=== PATIENT | male | born 1960 | race Two or more races ===

== ENCOUNTER 2023-10-16 10:50 | Emergency (ER) | payer OTHER ==
[~2023-10-16] VITALS: Ht 182.9 cm; Wt 108.5 kg
[2023-10-16 11:49] VITALS: BP 133/83; PULSE 80; RESP 18; TEMP 97.8; O2SAT 96
[2023-10-16] MEDS ORDERED: methylPREDNISolone SOD SUCC 125 MG/2 ML VL IM ONE (12:00)
[2023-10-16] MEDS ORDERED: cefTRIAXone SOD 1,000 MG VL IM ONE (12:00)
[2023-10-16] MEDS ORDERED: AZIT500T66 PO (12:05)
== END 2023-10-16 12:32 | disposition home or self-care (01) ==
LOC: ER 10:50
DX: K12.2 Cellulitis and abscess of mouth (principal); Z79.899 Other long term (current) drug therapy
CPT/HCPCS: 96372; 99284; J0696; J2930

== ENCOUNTER → 2023-10-21 | Outpatient (CLI) | payer OTHER ==
[~2023-10-21] MED LIST: AZIT500T66 PO
[2023-10-21 09:32] LABS: Basophils # (auto) 0 10 ^3/uL (0-0.2); Basophils % (auto) 0.5 % (0.0-2.0); Eosinophils # (auto) 0.2 10 ^3/uL (0-0.8); Eosinophils % (auto) 2.9 % (0.0-7.0); Hematocrit 48.1 % (41.0-53.0); Hemoglobin 16.3 g/dL (13.5-17.5); Lymphocytes # (auto) 2.1 10 ^3/uL (0.4-5.4); Lymphocytes % (auto) 30.7 % (10.0-50.0); Mean Corpuscular Hemoglobin 32.8 pg (28.0-32.0); Mean Corpuscular Volume 96.4 fL (80.0-100.0); Monocytes # (auto) 0.5 10 ^3/uL (0-1.3); Monocytes % (auto) 7.1 % (0.0-12.0); Neutrophils # (auto) 4.1 10 ^3/uL (1.6-8.6); Neutrophils % (auto) 58.8 % (37.0-80.0); Nucleated Red Blood Cells % 0.1 %; Red Blood Cells 4.98 10^6/uL (4.5-5.90); Red Cell Distribution Width 12.8 % (11.8-14.3)
[2023-10-21 09:57] LABS: Alanine Aminotransferase 27 U/L (7-40); Albumin 4.4 g/dL (3.2-4.8); Alkaline Phosphatase 53 U/L (46-116); Anion Gap 7 (5-15); Aspartate Aminotransferase 22 U/L (13-40); BUN/Creatinine Ratio 12.3 (10.0-20.0); Blood Urea Nitrogen 13 mg/dL (9-23); Calcium 9.5 mg/dL (8.5-10.1); Carbon Dioxide 26 mmol/L (20-30); Chloride 106 mmol/L (98-107); Cholesterol 235 mg/dL (< 200); Glucose 160 mg/dL (74-106); HDL Cholesterol 42 mg/dL (40-59); LDL Cholesterol 151 mg/dL (< 100); Potassium 4.7 mmol/L (3.5-5.1); Sodium 139 mmol/L (136-145); Triglycerides 327 mg/dL (< 150)
[2023-10-21 09:58] LABS: Bilirubin, Total 0.9 mg/dL (0.2-1.0)
[2023-10-22 09:26] LABS: Urine Blood Negative /uL (Negative); Urine Clarity Clear (Clear); Urine Color Colorless (Yellow); Urine Protein, UAD Negative (Negative); Urine Urobilinogen Normal (Negative)
[2023-10-22 12:08] LABS: Urine Bacteria FEW /hpf (None Seen); Urine WBC <1 /hpf (0 - 3)
== END | disposition home or self-care (01) ==
LOC: LAB 09:08
PROVIDERS: ATTEND Internal Medicine
DX: Z12.11 Encounter for screening for malignant neoplasm of colon (principal); I10 Essential (primary) hypertension; E78.5 Hyperlipidemia, unspecified
CPT/HCPCS: 36415; 80053; 80061; 81001; 82306; 83036; 84153; 84443; 85025

== ENCOUNTER → 2023-11-16 | Outpatient (CLI) | payer OTHER ==
[2023-11-16 10:28] LABS: Albumin 4.7 g/dL (3.2-4.8); Alkaline Phosphatase 54 U/L (46-116); Anion Gap 6 (5-15); Aspartate Aminotransferase 29 U/L (13-40); BUN/Creatinine Ratio 9.6 (10.0-20.0); Bilirubin, Total 0.9 mg/dL (0.2-1.0); Blood Urea Nitrogen 11 mg/dL (9-23); Calcium 9.7 mg/dL (8.5-10.1); Carbon Dioxide 25 mmol/L (20-30); Chloride 108 mmol/L (98-107); Cholesterol 168 mg/dL (< 200); Creatine Kinase IFCC 106 U/L (46-171); Glucose 130 mg/dL (74-106); HDL Cholesterol 36 mg/dL (40-59); LDL Cholesterol 110 mg/dL (< 100); Potassium 4.6 mmol/L (3.5-5.1); Sodium 139 mmol/L (136-145); Triglycerides 156 mg/dL (< 150)
[2023-11-16 10:29] LABS: Total Protein 7.4 g/dL (5.7-8.2)
[2023-11-16 12:01] LABS: Alanine Aminotransferase 31 U/L (7-40)
[2023-11-18 08:55] LABS: Hepatitis B Surface Antigen Negative (Negative)
[2023-11-18 09:18] LABS: Hepatitis A Ab IgM Negative; Hepatitis B Core IgM Negative; Hepatitis C Antibody Negative (Negative)
== END | disposition home or self-care (01) ==
LOC: LAB 09:26
PROVIDERS: ATTEND Internal Medicine
DX: E11.21 Type 2 diabetes mellitus with diabetic nephropathy (principal); E78.5 Hyperlipidemia, unspecified; E55.9 Vitamin D deficiency, unspecified; K76.0 Fatty (change of) liver, not elsewhere classified
CPT/HCPCS: 36415; 80053; 80061; 80074; 82306; 82550; 82607

== ENCOUNTER → 2024-01-31 | Day surgery (SDC) | payer OTHER, MEDICAID ==
[2024-01-28 12:07] LABS: Basophils # (auto) 0 10 ^3/uL (0-0.2); Basophils % (auto) 0.7 % (0.0-2.0); Eosinophils # (auto) 0.1 10 ^3/uL (0-0.8); Eosinophils % (auto) 2.4 % (0.0-7.0); Hematocrit 44.2 % (41.0-53.0); Hemoglobin 15.3 g/dL (13.5-17.5); Lymphocytes # (auto) 2.3 10 ^3/uL (0.4-5.4); Lymphocytes % (auto) 39.8 % (10.0-50.0); Mean Corpuscular Hemoglobin 33.3 pg (28.0-32.0); Mean Corpuscular Hgb Conc. 34.5 g/dL (32.0-36.0); Mean Corpuscular Volume 96.4 fL (80.0-100.0); Monocytes # (auto) 0.5 10 ^3/uL (0-1.3); Monocytes % (auto) 8.1 % (0.0-12.0); Neutrophils # (auto) 2.9 10 ^3/uL (1.6-8.6); Nucleated Red Blood Cells % 0.2 %; Red Blood Cells 4.59 10^6/uL (4.5-5.90); Red Cell Distribution Width 12.4 % (11.8-14.3); White Blood Cell 5.9 10^3/uL (4.4-10.8)
[2024-01-28 12:21] LABS: Partial Thromboplastin Time 29.1 SEC (24.5-34.5); Prothrombin Time 10.5 sec (9.3-11.8)
[2024-01-28 13:22] LABS: Alanine Aminotransferase 22 U/L (7-40); Albumin 4.6 g/dL (3.2-4.8); Alkaline Phosphatase 53 U/L (46-116); Anion Gap 9 (5-15); Aspartate Aminotransferase 20 U/L (13-40); BUN/Creatinine Ratio 15.8 (10.0-20.0); Bilirubin, Total 0.6 mg/dL (0.2-1.0); Blood Urea Nitrogen 16 mg/dL (9-23); Calcium 9.7 mg/dL (8.5-10.1); Carbon Dioxide 22 mmol/L (20-30); Chloride 108 mmol/L (98-107); Glucose 102 mg/dL (74-106); Potassium 4.6 mmol/L (3.5-5.1); Sodium 139 mmol/L (136-145); Total Protein 6.9 g/dL (5.7-8.2)
[~2024-01-31] VITALS: Ht 182.9 cm; Wt 104.8 kg
[~2024-01-31] MED LIST changes: +ATOR10TA PO; -AZIT500T66 PO; +CHOLCAP4 PO; +LOSA-533 PO; +MISCCAP66 OR; +SODIUM CHLORIDE LOCK 10 ML ONE; +diphenhdrAMINE HCL 50 MG/1 ML VL ONE
[2024-01-31] MEDS: fentaNYL CITRATE 100 MCG/2 ML VL ONE (12:35)
[2024-01-31] MEDS: MIDAZOLAM HCL 5 MG/ML-1ML VIAL ONE (12:35)
[2024-01-31 13:06] VITALS: TEMP 97.6; O2SAT 97
[2024-01-31 13:45] VITALS: BP 121/78; PULSE 59; RESP 12; O2SAT 92
== END | disposition home or self-care (01) ==
LOC: GI 11:04
PROVIDERS: ATTEND Internal Medicine Gastroenterology
DX: Z12.11 Encounter for screening for malignant neoplasm of colon (principal); D12.2 Benign neoplasm of ascending colon; D12.4 Benign neoplasm of descending colon; K64.8 Other hemorrhoids; Z79.899 Other long term (current) drug therapy; Z98.890 Other specified postprocedural states; Z98.41 Cataract extraction status, right eye; Z98.42 Cataract extraction status, left eye
CPT/HCPCS: 36415; 45380; 45385; 80053; 85025; 85610; 85730; 88305; J1200; J2250; J3010; 99152; 99153